=== PATIENT | male | born 1960 | race Caucasian/White ===

== ENCOUNTER 2019-02-04 17:14 | Emergency (ER) | payer MEDICAID, OTHER ==
[~2019-02-04] VITALS: Ht 177.8 cm; Wt 94.4 kg
--- NOTE | 2019-02-04 17:28 | NUR ---
PT WALKED INTO [facility] ROOM FOR C/C OF HIP PAIN
[2019-02-04] MEDS ORDERED: IBUPROFEN 600 MG TABLET PO ONE ×2 (17:57→18:00)
[2019-02-04 18:38] VITALS: BP 123/85
--- NOTE | 2019-02-04 18:38 | NUR ---
PT DISCHARGED TO HOME GIVEN ACI AND PRESCRIPTIONS WILL FOLLOW UP WITH PCP PT ALSO GIVEN X-RAY REPORTS
== END 2019-02-04 18:41 | disposition home or self-care (01) ==
LOC: ER 17:17
DX: S70.02XA Contusion of left hip, initial encounter (principal); J45.909 Unspecified asthma, uncomplicated; W07.XXXA Fall from chair, initial encounter; Y93.53 Activity, golf; Y92.89 Other specified places as the place of occurrence of the external cause; Y99.8 Other external cause status
CPT/HCPCS: 72170-TC; 73502